=== PATIENT | female | born 1995 | race Hispanic/Latino ===

== ENCOUNTER 2017-05-19 22:18 | Emergency (ER) | payer SELFPAY ==
[2017-05-20 00:52] LABS: Basophils % (Auto) 0.7 % (0.0-1.8); Eosinophils % (Auto) 0.2 % (0.0-4.3); Hematocrit 37.1 % (30.3-42.9); Hemoglobin 11.6 gm/dl (10.1-14.3); Mean Corpuscular HGB Conc 31 % (30-34); Mean Corpuscular Volume 79 fl (79-97); Platelet Count 204 K/mm3 (140-440); Red Blood Count 4.69 M/mm3 (3.65-5.03); Red Cell Distribution Width 15.7 % (13.2-15.2); White Blood Count 7.1 K/mm3 (4.5-11.0)
[2017-05-20 00:58] LABS: Mean Corpuscular Hemoglobin 25 pg (28-32)
[2017-05-20 01:01] LABS: Anion Gap 18 mmol/L; BUN/Creatinine Ratio 16; Blood Urea Nitrogen 8 mg/dL (7-17); Calcium 9.3 mg/dL (8.4-10.2); Carbon Dioxide 24 mmol/L (22-30); Glucose 126 mg/dL (65-100); Potassium 3.6 mmol/L (3.6-5.0); Sodium 140 mmol/L (137-145)
[2017-05-20 01:09] LABS: Urine Drugs of Abuse Note Disclamer
[2017-05-20 01:27] LABS: Bilirubin,Urine NEG (Negative); Blood,Urine LG (Negative); Ketones,Urine NEG (Negative); Leukocyte Esterase,Urine SM (Negative); Mucus,Urine 1+ /HPF; Nitrite,Urine NEG (Negative)
[2017-05-20 01:28] LABS: RBC,Urine > 182.0 /HPF (0.0-6.0)
[2017-05-20 04:47] VITALS: BP 135/75
== END 2017-05-20 05:38 | disposition home or self-care (01) ==
LOC: ED 22:18
DX: Z53.21 Procedure and treatment not carried out due to patient leaving prior to being seen by health care provider (principal)
CPT/HCPCS: 36415; 80048; 80307; 81001; 84703; 85025; G0480; 80320; 99283

== ENCOUNTER 2018-04-24 16:17 | Inpatient (IN) | payer SELFPAY ==
[2018-04-24 18:44] LABS: Basophils % (Auto) 0.5 % (0.0-1.8); Hematocrit 38.8 % (30.3-42.9); Hemoglobin 12.7 gm/dl (10.1-14.3); Lymphocytes # (Auto) 1.1 K/mm3 (1.2-5.4); Lymphocytes % (Auto) 12.4 % (13.4-35.0); Mean Corpuscular HGB Conc 33 % (30-34); Mean Corpuscular Hemoglobin 26 pg (28-32); Mean Corpuscular Volume 80 fl (79-97); Monocytes # (Auto) 0.6 K/mm3 (0.0-0.8); Monocytes % (Auto) 7.3 % (0.0-7.3); Platelet Count 246 K/mm3 (140-440); Red Blood Count 4.85 M/mm3 (3.65-5.03); Red Cell Distribution Width 16.1 % (13.2-15.2)
[2018-04-24 19:10] LABS: BUN/Creatinine Ratio 12; Blood Urea Nitrogen 7 mg/dL (7-17); Calcium 9.8 mg/dL (8.4-10.2); Hemolysis Index 12
--- NOTE | 2018-04-24 19:26 | Emergency Department Report ---
HPI - General Chief Complaint: Syncope Time Seen by Provider: 04/24/18 19:09 - HPI HPI: Room 7 The patient is a 23-year-old female presenting with a chief complaint of chest pain and syncope. The patient states she has been up for over 24 hours secondary to "family issues." Patient admits to fatigue for the past 2 weeks and feeling foggy. The patient states this morning at 07:00 she noticed left- sided chest pain that was throbbing and sharp in nature and felt dizzy. The patient went to work at 08:30 sensation also began to feel nauseous. The patient states she asked for break and went to the break room and then lost consciousness. Patient states she awakened on the floor and eventually called 911 herself. The patient states there was some shortness of breath and diaphoresis with her chest pain. The patient missed a slight pleurisy. The patient gives her pain score 5/10. The patient states she has a history of ventricular tachycardia and AICD has been discussed but the patient states she has decided to hold off on it until it is absolutely necessary Location: [See above] Duration: [See above] Quality: Sharp/throbbing Severity:5/10 Modifying factors: [see above] Context: [see above] Mode of transportation: [not driving] ED Past Medical Hx - Past Medical History Previous Medical History?: Yes Hx Asthma: Yes Additional medical history: Mnire's disease,hypoglycemia. ventricular tachycardia - Surgical History Past Surgical History?: Yes Additional Surgical History: tubes placed in ears multiple times - Family History Family history: no significant - Social History Smoking Status: Never Smoker Substance Use Type: Alcohol (occasional), Marijuana ED Review of Systems ROS: Stated complaint: CHEST PAIN Other details as noted in HPI Constitutional: diaphoresis Eyes: denies: eye pain ENT: denies: throat pain Respiratory: shortness of breath Cardiovascular: chest pain Endocrine: no symptoms reported Gastrointestinal: nausea Genitourinary: denies: dysuria Musculoskeletal: denies: back pain Neurological: other (dizziness). denies: headache Physical Exam - Physical Exam Vital Signs: Vital Signs 04/24/18 04/24/18 16:33 19:17 Temperature 98.8 F 98.7 F Pulse Rate 107 H Respiratory 18 18 Rate Blood Pressure 114/70 Blood Pressure 122/73 [Left] O2 Sat by Pulse 98 100 Oximetry Physical Exam: GENERAL: The patient is well-developed well-nourished female sitting on stretcher not appearing to be in acute distress. [] HEENT: Normocephalic. Atraumatic. Extraocular motions are intact. Patient has moist mucous membranes. NECK: Supple. No meningitic signs are noted. No axial tenderness to palpation CHEST/LUNGS: Clear to auscultation. There is no respiratory distress noted. HEART/CARDIOVASCULAR: Regular. There is no tachycardia. There is no gallop rub or murmur. ABDOMEN: Abdomen is soft, nontender. Patient has normal bowel sounds. There is no abdominal distention. SKIN: There is no rash. There is no edema. There is no diaphoresis. NEURO: The patient is awake, alert, and oriented. The patient is cooperative. The patient has no focal neurologic deficits. The patient has normal speech. Cranial nerves II through XII grossly intact, no drift. MUSCULOSKELETAL: There is no evidence of acute injury. ED Course Vital Signs 04/24/18 04/24/18 16:33 19:17 Temperature 98.8 F 98.7 F Pulse Rate 107 H Respiratory 18 18 Rate Blood Pressure 114/70 Blood Pressure 122/73 [Left] O2 Sat by Pulse 98 100 Oximetry ED Medical Decision Making - Lab Data Result diagrams: 04/24/18 18:14 04/24/18 18:14 - EKG Data -: EKG Interpreted by Me EKG shows normal: sinus rhythm Rate: normal - EKG Data When compared to previous EKG there are: previous EKG unavailable Interpretation: other (no ischemic changes seen) - Radiology Data Radiology results: report reviewed (CT Head), image reviewed (CT head, chest x- ray) interpreted by me: Chest X ray- no focal infiltrates, no pneumothorax [facility] [address] [place] [address] Cat Scan Report Signed Patient: GYPSY BARRIOS MR#: [id number] : 1995 Acct:[id number] Age/Sex: 23 / F ADM Date: 04/24/18 Loc: ED Attending Dr: Ordering Physician: REVA JIN MD Date of Service: 04/24/18 Procedure(s): CT head/brain wo con Accession Number(s): [id number] cc: REVA JIN MD FINAL REPORT PROCEDURE: CT HEAD/BRAIN WO CON TECHNIQUE: Computerized tomography of the head was performed without contrast material. HISTORY: syncope, dizziness COMPARISON: No prior studies are available for comparison. FINDINGS: Skull and scalp: A sclerotic lesion is identified involving the outer table of occipital bone on the left measuring about 1.9 centimeters. Paranasal sinuses: Normal. Ventricles and subarachnoid spaces: Normal. Cerebrum: No evidence of hemorrhage, acute infarction or mass . Cerebellum and brainstem: No evidence of hemorrhage, acute infarction or mass. Vasculature: Normal. Comments: None. IMPRESSION: No acute intracranial abnormality 1.9 centimeters sclerotic lesion of the occipital bone on the left is consistent with osteoma Transcribed By: UBC Dictated By: ADYA MARIE Electronically Authenticated By: DAYA MARIE Signed Date/Time: 04/24/182108 DD/ 08 TD/TT: 04/24/182108 - Differential Diagnosis ventricular tachycardia, PE, ACS, pericarditis, vasovagal syncope Critical care attestation.: If time is entered above; I have spent that time in minutes in the direct care of this critically ill patient, excluding procedure time. ED Disposition Clinical Impression: Syncope, Chest pain Disposition: -09 OP ADMIT IP TO THIS HOSP Is pt being admited?: Yes Does the pt Need Aspirin: Yes Condition: Fair Instructions: Chest Pain (ED), Syncope (ED) Referrals: PRIMARY CARE,MD [Primary Care Provider] - 3-5 Days Time of Disposition: 21:39 (hospitalist paged (Dr Reyes))
[2018-04-24] MEDS ORDERED: ZOFRAN ONE ×2 (19:42→19:44)
[2018-04-24] MEDS ORDERED: SUBLIMAZE ONE (19:44)
[2018-04-24] MEDS ORDERED: ZOFRAN IV ONE (19:45)
[2018-04-24] MEDS ORDERED: SUBLIMAZE IV ONE (19:45)
[2018-04-24 20:14] LABS: Creatine Kinase MB 1.1 ng/mL (0.0-4.0)
--- NOTE | 2018-04-24 21:10 | Cat Scan Report ---
FINAL REPORT PROCEDURE: CT HEAD/BRAIN WO CON TECHNIQUE: Computerized tomography of the head was performed without contrast material. HISTORY: syncope, dizziness COMPARISON: No prior studies are available for comparison. FINDINGS: Skull and scalp: A sclerotic lesion is identified involving the outer table of occipital bone on the left measuring about 1.9 centimeters. Paranasal sinuses: Normal. Ventricles and subarachnoid spaces: Normal. Cerebrum: No evidence of hemorrhage, acute infarction or mass . Cerebellum and brainstem: No evidence of hemorrhage, acute infarction or mass. Vasculature: Normal. Comments: None. IMPRESSION: No acute intracranial abnormality 1.9 centimeters sclerotic lesion of the occipital bone on the left is consistent with osteoma
--- NOTE | 2018-04-24 22:08 | XRay Report ---
FINAL REPORT PROCEDURE: XR CHEST 1V AP TECHNIQUE: Chest radiograph anteroposterior view. CPT 64888 HISTORY: chest pain COMPARISON: No prior studies are available for comparison. FINDINGS: Heart: Normal. Mediastinum/Vessels: Normal. Lungs/Pleural space: Normal. Bony thorax: No acute osseous abnormality. Life support devices: None. IMPRESSION: No acute cardiopulmonary abnormality.
[2018-04-24] MEDS ORDERED: TYLENOL PO PRN (22:35)
[2018-04-24] MEDS ORDERED: NITROSTAT SL PRN (22:36)
[2018-04-24] MEDS ORDERED: MORPHINE IV PRN (22:38)
[2018-04-24] MEDS ORDERED: ZOFRAN IV PRN (22:39)
[2018-04-24] MEDS ORDERED: ANTIVERT PO PRN (22:47)
[2018-04-25] MEDS: NITRO-BID 2% TP SCH ×4 (00:15→14:18)
--- NOTE | 2018-04-25 04:27 | History and Physical Report ---
CHIEF COMPLAINT: Syncopal attack. Other complaint includes chest pain. HISTORY OF PRESENT ILLNESS: The patient is a 23-year-old female, who said she has been having tiredness going on for about 2 weeks and feeling funny and foggy and said that she started having left-sided chest pain that is sharp and throbbing in nature yesterday morning. Also, the patient said she was feeling dizzy and went to work about 08:30 in the morning and started feeling nauseous at work. The patient states she went for break and while she was in the break room, she passed out and the next thing she remembers she was on the ground for unknown period of time and said she herself called 911. The patient admitted also to having shortness of breath and chest pain and gave the rate of the pain as 5/10.There is history of vertigo prior to the syncopal attack. PAST MEDICAL HISTORY: Pertinent for asthma, Meniere's disease, hypoglycemia, ventricular tachycardia. PAST SURGICAL HISTORY: Pertinent for tubes placed in the ears many times. FAMILY HISTORY: Noncontributory. SOCIAL HISTORY: The patient does not smoke, drinks alcohol occasionally and uses marijuana. REVIEW OF SYSTEMS: CONSTITUTIONAL: There is no fever, no chills. Diaphoresis present. HEENT: There is no headache or sore throat. CARDIOVASCULAR: Chest pain is present. No orthopnea. RESPIRATORY: Shortness of breath is present. No cough. GASTROINTESTINAL: There is nausea, but no vomiting, no diarrhea, no abdominal pain and no constipation. NEUROLOGICAL SYSTEM: There is dizziness. There is syncopal episode and there is change of mental status during the syncopal . MUSCULOSKELETAL SYSTEM: There is no joint pain or swelling. DERMATOLOGICAL SYSTEM: There is no skin rash or itching. GENITOURINARY SYSTEM: There is no dysuria, hematuria or flank pain. Rest of system review is normal. PHYSICAL EXAMINATION: GENERAL: At the time of exam, the patient was found to be alert, oriented x 3 and not in acute distress. VITAL SIGNS: Shows temperature of 98.8 degrees Fahrenheit, pulse of 108, respirations 18. blood pressure 114/70, O2 sat of 98% on room air. HEENT: Show pupils to be equal, round, reactive to light and accommodating. Extraocular muscles are intact. NECK: Supple with no JVD or carotid bruit. CARDIOVASCULAR: Showed normal first and second heart sounds with no gallops or murmurs. RESPIRATORY SYSTEM: Show good air entry on both sides of the lungs with no abnormal breath sounds. GASTROINTESTINAL SYSTEM: Show abdomen to be full, soft, nontender with no organomegaly or rigidity. NEUROLOGIC: Show no focal deficit. MUSCULOSKELETAL: Show no joint swelling or tenderness. DERMATOLOGICAL SYSTEM: Show no skin rash. GENITOURINARY: Showing no costovertebral angle tenderness. PERTINENT LABORATORY AND IMAGING STUDIES: The patient had CT of the head and brain without contrast that shows no acute intracranial abnormality; however, there is finding of 1.9 cm sclerotic lesion of the occipital bone on the left, which the Radiology said is consistent with osteoma. The patient's chest x-ray was unremarkable. LAB RESULTS: CBC showed normal white count, normal hemoglobin and normal hematocrit with CBC differential showing elevated segmented neutrophil of 79.8%. The patient's chemistry was unremarkable. test was negative. Troponin level and other cardiac enzymes were normal. DIAGNOSES: 1. Chest pain. 2. Syncope. PLAN: 1. The patient will be admitted to telemetry and will have cardiac enzymes checked q. 6 hours x2. 2. The patient will remain n.p.o. and will have Lexiscan stress test this morning. 3. The patient will be on Tylenol 650 mg by mouth every 4 hours for fever, headache and aspirin 325 mg by mouth daily and DVT prophylaxis will be through heparin 5000 units subcutaneous q. 12 hours. The patient will be on meclizine 25 mg by mouth every 8 hours as needed for vertigo and will be on morphine 2 mg IV every 3 hours as needed for chest pain and nitro paste half inch to anterior chest wall q.i.d. The patient will also be on sublingual nitroglycerin for breakthrough chest pain and will be on IV Zofran 4 mg every 8 hours as needed for nausea and vomiting. The patient will have bilateral carotid Doppler done because of syncope and will have Cardiology consult with Dr. Tello because of history of V-tach with chest pain and syncope. The patient will also be on oxygen by nasal cannula at 2 liters per minute. JOB# [id number] OCN/NTS MTDD
[2018-04-25 06:41] LABS: Creatine Kinase MB < 1.0 ng/mL (0.0-4.0)
[2018-04-25 06:43] LABS: Creatine Kinase MB < 1.0 ng/mL (0.0-4.0)
[2018-04-25 08:58] VITALS: BP 97/47
[2018-04-25] MEDS ORDERED: ASPIRIN PO SCH (10:00)
[2018-04-25] MEDS ORDERED: HEPARIN SUB-Q SCH (10:00)
[2018-04-25] MEDS ORDERED: LEXISCAN IV ONE ×2 (10:29→10:37)
--- NOTE | 2018-04-25 10:59 | Consultation ---
History of Present Illness Consult date: 04/25/18 Consult reason: syncope History of present illness: 23-year-old woman who presented to the hospital after a syncopal episode which occurred while sitting at her desk at work. There was no preceding exertional activity. It was unknown how long she was unresponsive, she came to in the ambulance. She was evaluated in the emergency room and referred for admission. Cardiology consultation was requested. The patient gives a history of ventricular tachycardia for which she is seen regularly by recapper at [place]. Last year, she underwent a cardiac catheterization following which she was placed on atenolol 50 mg a day. She is unable to report her left ventricle systolic ejection fraction, and does not know whether an ablation was contemplated or performed for the ventricular tachycardia. Her tachycardia evaluation was also preceded by syncope and palpitations at that time. On this current presentation, she did not have palpitations but did describe a "funny" feeling in her chest prior to her passing out. On this presentation, the ECG is normal sinus rhythm, normal ECG, no arrhythmias on telemetry monitoring. Laboratory values including potassium and magnesium levels are normal. An echocardiogram is pending for left ventricular and right ventricular chamber size and function. The internal medicine service ordered a pharmacologic stress test with thallium which I have cancelled. Past History Past Medical History: arrhythmia Medications and Allergies Allergies Allergy/AdvReac Type Severity Reaction Status Date / Time bee venom protein (honey bee) Allergy Anaphylaxis Verified 05/19/17 23:49 sofia Allergy Anaphylaxis Verified 05/19/17 23:49 ciprofloxacin Allergy Anaphylaxis Verified 05/19/17 23:49 mushroom Allergy Hives Verified 05/19/17 23:49 Tetracyclines Allergy Anaphylaxis Verified 05/19/17 23:49 Home Medications Medication Instructions Recorded Confirmed Last Taken Type ALBUTEROL Inhaler (OR & NICU) 2 puff PO BID PRN 04/25/18 04/25/18 04/23/18 History [ProAir HFA Inhaler] hydroCHLOROthiazide [HCTZ] 25 mg PO QDAY 04/25/18 04/25/18 04/23/18 History Active Meds: Active Medications Acetaminophen (Tylenol) 650 mg PO Q4H PRN PRN Reason: Headache Aspirin (Aspirin) 325 mg PO QDAY NORBERT Atenolol (Tenormin) 50 mg PO QDAY NORBERT Heparin Sodium (Porcine) (Heparin) 5,000 unit SUB-Q Q12HR [facility] Meclizine HCl (Antivert) 25 mg PO Q8H PRN PRN Reason: Vertigo Morphine Sulfate (Morphine) 2 mg IV Q3H PRN PRN Reason: Pain, Moderate (4-6) Nitroglycerin (Nitrostat) 0.4 mg SL .Q5MIN PRN PRN Reason: Chest Pain Nitroglycerin (Nitro-Bid 2%) 0.5 inch TP QIDNTG [facility]; Protocol Last Admin: 04/25/18 05:33 Dose: Not Given Ondansetron HCl (Zofran) 4 mg IV Q8H PRN PRN Reason: Nausea And Vomiting Review of Systems Cardiovascular: chest pain, syncope, no orthopnea, no palpitations, no rapid/ irregular heart beat, no edema, no lightheadedness, no shortness of breath Physical Examination Vital Signs Temp Pulse Resp BP Pulse Ox 98.8 F 107 H 18 114/70 98 04/24/18 16:33 04/24/18 16:33 04/24/18 16:33 04/24/18 16:33 04/24/18 16:33 General appearance: no acute distress HEENT: Positive: PERRL Neck: Positive: neck supple Cardiac: Positive: Reg Rate and Rhythm Lungs: Positive: clear to auscultation Neuro: Positive: Grossly Intact Abdomen: Positive: Soft Female genitourinary: deferred Skin: Positive: Clear Extremities: Absent: edema Results 04/24/18 18:14 04/24/18 18:14 Cardiac Enzymes 04/24/18 04/25/18 04/25/18 Range/Units 19:47 04:54 04:54 CK-MB (CK-2) 1.1 < 1.0 < 1.0 (0.0-4.0) ng/mL CBC 04/24/18 Range/Units 18:14 WBC 8.7 (4.5-11.0) K/mm3 RBC 4.85 (3.65-5.03) M/mm3 Hgb 12.7 (10.1-14.3) gm/dl Hct 38.8 (30.3-42.9) % Plt Count 246 (140-440) K/mm3 Lymph # 1.1 L (1.2-5.4) K/mm3 [place] # 0.6 (0.0-0.8) K/mm3 Eos # 0.0 (0.0-0.4) K/mm3 Baso # 0.0 (0.0-0.1) K/mm3 Comprehensive Metabolic Panel 04/24/18 Range/Units 18:14 Sodium 140 (137-145) mmol/L Potassium 4.2 (3.6-5.0) mmol/L Chloride 98.9 (98-107) mmol/L Carbon Dioxide 25 (22-30) mmol/L BUN 7 (7-17) mg/dL Creatinine 0.6 L (0.7-1.2) mg/dL Glucose 84 (65-100) mg/dL Calcium 9.8 (8.4-10.2) mg/dL EKG interpretations - Telemetry EKG Rhythm: Sinus Rhythm Assessment and Plan - Patient Problems (1) Syncope Current Visit: Yes Status: Acute Plan to address problem: Episode of syncope in a patient with a history of ventricular tachycardia, we will get an echocardiogram for left ventricular and right ventricular chamber size and systolic function. We will continue telemetry monitoring, and obtain records from [place] for further review. 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
[2018-04-25] MEDS ORDERED: TENORMIN PO SCH (11:00)
[2018-04-25] MEDS ORDERED: AFLURIA QUAD 2018-2019 SYRINGE IM ONE (12:00)
--- NOTE | 2018-04-25 15:58 | Progress Note ---
Hospitalist Physical - Constitutional Vitals: Temp Pulse Resp BP Pulse Ox 97.9 F 67 18 97/47 98 04/25/18 08:53 04/25/18 12:00 04/25/18 08:53 04/25/18 08:53 04/25/18 08:53 General appearance: Present: no acute distress Results - Labs CBC & Chem 7: 04/24/18 18:14 04/24/18 18:14 Labs: Laboratory Last Values WBC 8.7 K/mm3 (4.5-11.0) 04/24/18 18:14 RBC 4.85 M/mm3 (3.65-5.03) 04/24/18 18:14 Hgb 12.7 gm/dl (10.1-14.3) 04/24/18 18:14 Hct 38.8 % (30.3-42.9) 04/24/18 18:14 MCV 80 fl (79-97) 04/24/18 18:14 MCH 26 pg (28-32) L 04/24/18 18:14 MCHC 33 % (30-34) 04/24/18 18:14 RDW 16.1 % (13.2-15.2) H 04/24/18 18:14 Plt Count 246 K/mm3 (140-440) 04/24/18 18:14 Lymph % (Auto) 12.4 % (13.4-35.0) L 04/24/18 18:14 [place] % (Auto) 7.3 % (0.0-7.3) 04/24/18 18:14 Eos % (Auto) 0.0 % (0.0-4.3) 04/24/18 18:14 Baso % (Auto) 0.5 % (0.0-1.8) 04/24/18 18:14 Lymph # 1.1 K/mm3 (1.2-5.4) L 18 18:14 [place] # 0.6 K/mm3 (0.0-0.8) 18 18:14 Eos # 0.0 K/mm3 (0.0-0.4) 18 18:14 Baso # 0.0 K/mm3 (0.0-0.1) 04/24/18 18:14 Seg Neutrophils % 79.8 % (40.0-70.0) H 04/24/18 18:14 Seg Neutrophils # 7.0 K/mm3 (1.8-7.7) 04/24/18 18:14 D-Dimer 163.52 ng/mlDDU (0-234) 04/24/18 19:47 Sodium 140 mmol/L (137-145) 04/24/18 18:14 Potassium 4.2 mmol/L (3.6-5.0) 04/24/18 18:14 Chloride 98.9 mmol/L (98-107) 04/24/18 18:14 Carbon Dioxide 25 mmol/L (22-30) 04/24/18 18:14 Anion Gap 20 mmol/L 04/24/18 18:14 BUN 7 mg/dL (7-17) 04/24/18 18:14 Creatinine 0.6 mg/dL (0.7-1.2) L 04/24/18 18:14 Estimated GFR > 60 ml/min 04/24/18 18:14 BUN/Creatinine Ratio 12 % 04/24/18 18:14 Glucose 84 mg/dL (65-100) 04/24/18 18:14 POC Glucose 111 (70-105) H 04/25/18 05:21 Calcium 9.8 mg/dL (8.4-10.2) 04/24/18 18:14 Magnesium 1.80 mg/dL (1.7-2.3) 04/24/18 22:49 Total Creatine Kinase 56 units/L (30-135) 04/25/18 04:54 CK-MB (CK-2) < 1.0 ng/mL (0.0-4.0) 04/25/18 04:54 CK-MB (CK-2) Rel Index 1.7 (0-4) 04/25/18 04:54 Troponin T < 0.010 ng/mL (0.00-0.029) 04/25/18 04:54 HCG, Qual Negative (Negative) 04/24/18 18:14
[2018-04-25] MEDS ORDERED: NACL 0.9% 500 ML 500 ML IV SCH (16:00)
--- NOTE | 2018-04-25 17:44 | Discharge Summary ---
Providers - Providers Date of Admission: 04/24/18 22:26 Attending physician: RASHMI MONZON 04/25/18 06:00 Consult to Physician [CONS] Routine Comment: Consulting Provider: BECKIE KENYON Physician Instructions: Reason For Exam: CHEST PAIN WITH SYNCOPE AND HISTORY OF V-TACH Primary care physician: [facility] [employer] [facility] Hospitalization Condition: Fair Disposition: DC-07 LEFT AGAINST MED ADVICE Exam - Constitutional Vitals: Temp Pulse Resp BP Pulse Ox 97.9 F 67 18 97/47 98 04/25/18 08:53 04/25/18 12:00 04/25/18 08:53 04/25/18 08:53 04/25/18 08:53 Plan Follow up with: PRIMARY CARE, [Primary Care Provider] - 3-5 Days Forms: AMA Form
--- NOTE | 2018-04-27 01:20 | Event Note ---
Date: 04/25/18 Pt left [facility]
== END 2018-04-25 16:00 | disposition left against medical advice (07) | DRG 312 ==
LOC: ED 16:17 → 4A 22:26
PROVIDERS: ADMIT Internal Medicine; ATTEND Internal Medicine
DX: R55 Syncope and collapse (principal); R07.9 Chest pain, unspecified; J45.909 Unspecified asthma, uncomplicated; H81.09 Meniere's disease, unspecified ear; F12.90 Cannabis use, unspecified, uncomplicated; Z53.21 Procedure and treatment not carried out due to patient leaving prior to being seen by health care provider; Z88.1 Allergy status to other antibiotic agents; Z91.030 Bee allergy status; Z91.018 Allergy to other foods; Z79.899 Other long term (current) drug therapy; Z79.51 Long term (current) use of inhaled steroids
CPT/HCPCS: 36415; 70450; 71045; 80048; 82550; 82553; 82962; 83735; 84484; 84703; 85025; 85379; 90686; 93005; 93010; 93306; 96374; 96375; J2405; J2785; J3010